=== PATIENT | female | born 1995 | race Caucasian/White ===

== ENCOUNTER 2020-10-19 08:43 | Emergency (ER) | payer OTHER, SELFPAY ==
[2020-10-19 08:53] VITALS: BP 135/79; PULSE 86; RESP 16; TEMP 36.8; O2SAT 100
--- NOTE | 2020-10-19 08:57 | ED.SKABFB ---
HPI - Skin/Abscess/Foreign Bdy General Chief complaint: Skin/Abscess/Foreign Body Stated complaint: Rash on Buttocks Time Seen by Provider: 10/19/20 08:57 Source: patient and RN notes reviewed Mode of arrival: ambulatory Limitations: no limitations History of Present Illness HPI narrative: 25-year-old female presents to the [facility] with complaints of a rash to her buttock. Patient states that she was swimming the other day and started scratching the area. Denies fevers. No abdominal pain or chest pain Related Data Home Medications Medication Instructions Recorded Confirmed alprazolam 0.5 mg PO DAILY 10/19/20 10/19/20 fluoxetine 80 mg PO DAILY 10/19/20 10/19/20 levothyroxine 150 mcg PO DAILY 10/19/20 10/19/20 norgestimate-ethinyl estradiol 0.25 tablet PO DAILY 10/19/20 10/19/20 [Estarylla] Allergies Allergy/AdvReac Type Severity Reaction Status Date / Time No Known Allergies Allergy Unverified 06/16/14 18:44 Review of Systems Review of Systems: All systems reviewed & are unremarkable except as noted in HPI and below Constitutional: Constitutional: Reports no additional constitutional complaints, Denies chills and Denies fever(s) ENT: Reports system reviewed and no additional complaints, except as documented Cardiovascular: Cardiovascular: Reports no additional cardiovascular complaints Respiratory: Respiratory: Reports no additional respiratory complaints Musculoskeletal: Musculoskeletal: Reports no additional musculoskeletal complaints Integumentary/Breasts: Skin/Breast: Reports as per HPI and Reports erythema (Right buttock) Neurologic: Reports system reviewed and no additional complaints, except as documented Psychiatric: Psychiatric: Reports no additional psychiatric complaints Allergic/Immunologic: Allergic/Immunologic: Reports no additional allergic/immunologic complaints [facility] Past Medical History Medical History (Updated 10/19/20 @ 11:08 by Lacy Hopkins) Anxiety and depression Thyroid disease Social History Social History (Updated 10/19/20 @ 11:08 by Lacy Hopkins) Smoking status: Never smoker Substance use: never Living arrangements: with roommate(s) Occupation/Education: occupation Additional occupation/education comments: RN Gender identity (if verbalized by the patient): Female Comments At the time of my signature, I reviewed and agree with the nursing past medical, surgical, social, and family history. There is no relevant family history pertinent to the patient complaint. Exam Const: General: healthy appearing, no acute distress and alert Nutritional Appearance: well nourished Orientation/consciousness: patient oriented x3 Limitations: no limitations HENMT: Head: normal to inspection Ears: external ears normal Neck: Neck: normal visual inspection, no lymphadenopathy and no meningeal signs Chest: Chest palpation & inspection: normal inspection of the chest Resp: Effort & Inspection: normal respiratory effort Auscultation: clear to auscultation bilaterally Cardio: Rate: regular rate Rhythm: regular rhythm Back/Spine/Pelvis: Back: no CVA tenderness Skin: Other: Redness 2 cm in diameter with no fluctuant area. Center possible insect bites. Scabbed areas noted. Mildly raised, swelling. Warm to touch Neuro: General: patient oriented x3, moves all extremities, no meningeal signs and no focal motor deficits Speech: normal speech Gait exam (Neuro): Normal gait present Extrem: General: normal to inspection Psych: Appearance: grossly normal and well kempt Mental Status: mental status grossly normal Affect: normal affect Attitude: cooperative Thought content: Yes Normal thought content present Course Course Emergency Course: Discharge instructions reviewed with patient, as well as provided in writing per nursing staff. The instructions also include specific and strict return/GO TO THE ER as well as f/u information. All questions have been
== END 2020-10-19 09:10 | disposition home or self-care (01) ==
PROVIDERS: Emergency Provider Nurse Practitioner; PCP Internal Medicine
DX: L03.317 Cellulitis of buttock (principal); F41.9 Anxiety disorder, unspecified; F32.9 Major depressive disorder, single episode, unspecified
CPT/HCPCS: 99203; G0463